=== PATIENT | male | born 1985 | race Caucasian/White ===

== ENCOUNTER 2021-10-14 19:51 | Emergency (ER) | payer MEDICAID ==
[~2021-10-14] VITALS: Ht 177.8 cm; Wt 79.5 kg
[~2021-10-14 19:51] MED LIST: CLON-371 PO; CLON-527 PO; DIVA-76 PO; DIVA500T2 PO; GABA-532 PO; MIRT45TA PO; MIRT45TA83 PO; PRAZ2CAP2 PO; RISP2TAB85 PO
[2021-10-14 19:54] VITALS: BP 123/79
[2021-10-14] MEDS ORDERED: AMOX-117 PO (20:55)
[2021-10-14] MEDS ORDERED: sulfamethoxazole/trimethoprim DS (800/160mg) tablet PO ONE (20:55)
[2021-10-14] MEDS ORDERED: SULF1TAB45 PO (20:55)
[2021-10-14] MEDS ORDERED: amox tr/potassium clavulanate 875/125mg TAB PO ONE (20:55)
== END 2021-10-14 21:19 | disposition home or self-care (01) ==
LOC: ER 19:52
DX: L03.114 Cellulitis of left upper limb (principal); F15.20 Other stimulant dependence, uncomplicated; F11.90 Opioid use, unspecified, uncomplicated; Z88.5 Allergy status to narcotic agent; Z88.8 Allergy status to other drugs, medicaments and biological substances; Z56.0 Unemployment, unspecified; Z59.00 Homelessness unspecified
CPT/HCPCS: 73080; 99283

== ENCOUNTER 2023-05-19 00:04 | Emergency (ER) | payer MEDICAID ==
[~2023-05-19] VITALS: Ht 180.3 cm; Wt 95.5 kg
[2023-05-19 00:21] VITALS: BP 110/68; PULSE 87; RESP 14; TEMP 97.9; O2SAT 99
== END 2023-05-19 00:35 | disposition home or self-care (01) ==
LOC: ER 00:05
DX: M79.671 Pain in right foot (principal); M79.672 Pain in left foot; F15.90 Other stimulant use, unspecified, uncomplicated; Z88.8 Allergy status to other drugs, medicaments and biological substances; Z79.899 Other long term (current) drug therapy
CPT/HCPCS: 99283

== ENCOUNTER → 2024-02-22 | Emergency (ER) | payer MEDICAID ==
[~2024-02-22] VITALS: Ht 180.3 cm; Wt 72.7 kg
[~2024-02-22] MED LIST changes: +GABA300C PO; +RISP-32 PO; -RISP2TAB85 PO
[2024-02-22 19:43] VITALS: BP 143/86; PULSE 84; TEMP 97.8; O2SAT 97
[2024-02-22 20:57] VITALS: RESP 20
== END | disposition home or self-care (01) ==
LOC: ER 19:43
DX: F15.10 Other stimulant abuse, uncomplicated (principal); Z76.0 Encounter for issue of repeat prescription; Z88.8 Allergy status to other drugs, medicaments and biological substances; Z79.899 Other long term (current) drug therapy; Z59.00 Homelessness unspecified
CPT/HCPCS: 99283